=== PATIENT | female | born 1960 | race Caucasian/White ===

== ENCOUNTER 2017-12-23 14:19 | Emergency (ER) | payer OTHER ==
[~2017-12-23] VITALS: Ht 167.6 cm; Wt 60.0 kg
[2017-12-23 14:34] VITALS: BP 135/62; PULSE 77; RESP 18; TEMP 98.5; O2SAT 98
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
[2017-12-23] MEDS ORDERED: KETOROLAC TROMETHAMINE 60 MG/2 ML (IM) VIAL IM ONE (15:45)
[2017-12-23] MEDS ORDERED: ORPHENADRINE INJ 60 MG/2 ML AMP IM ONE (15:45)
[2017-12-23] MEDS ORDERED: STATIN DRUG PO (15:46)
[2017-12-23] MEDS ORDERED: DILT0.05 PO (15:46)
[2017-12-23] MEDS ORDERED: IBUP-232 PO (15:50)
[2017-12-23] MEDS ORDERED: CYCL10TA PO (15:50)
== END 2017-12-23 17:10 | disposition home or self-care (01) ==
LOC: NEPD 14:19
DX: S16.1XXA Strain of muscle, fascia and tendon at neck level, initial encounter (principal); S20.219A Contusion of unspecified front wall of thorax, initial encounter; S30.1XXA Contusion of abdominal wall, initial encounter; R51 Headache; R20.2 Paresthesia of skin; V49.49XA Driver injured in collision with other motor vehicles in traffic accident, initial encounter
CPT/HCPCS: 96372; 99283; J1885; J2360